=== PATIENT | male | born 2000 | race Caucasian/White ===

== ENCOUNTER 2022-02-17 06:00 | Emergency (ER) | payer OTHER, SELFPAY ==
[2022-02-17 05:50] VITALS: BP 117/70; PULSE 101; RESP 18; TEMP 36.9; O2SAT 97
[2022-02-17] MEDS: HALOPERIDOL 5 MG/ML VIAL 10 MG (06:06)
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
--- NOTE | 2022-02-17 06:19 | PC.NURSE ---
Pt consented and tolerated straight cath with no complications
[2022-02-17 06:43] LABS: Add Manual Diff / Slide Review NO; Basophils Absolute Auto 100 /uL (0-100); Basophils Percent Auto 0.8 % (0-2); Eosinophils Absolute Auto 200 /uL (0-450); Eosinophils Percent Auto 1.9 % (2-4); Hematocrit 44.3 % (41-53); Hemoglobin 14.9 g/dL (13.5-17.5); Lymphocytes Absolute Auto 4300 /uL (1100-4500); Lymphocytes Percent Auto 47.1 % (25-40); Mean Corpuscular HGB Conc 33.6 % (30-36); Mean Corpuscular Hemoglobin 30.6 PG (26-34); Mean Corpuscular Volume 91.1 fL (80-100); Monocytes Absolute Auto 700 /uL (0-900); Monocytes Percent Auto 7.7 % (3-14); Neutrophils Absolute Auto 3900 /uL (1500-7000); Neutrophils Percent Auto 42.5 % (50-75); Platelet Count 293 X10^3/uL (150-400); Red Blood Cell Count 4.86 X10^6/uL (4.5-5.9); Red Cell Distribution Width 11.9 % (11.6-14.8); White Blood Cell Count 9.2 X10^3/uL (4.5-11.0)
[2022-02-17 06:45] LABS: Ethanol (ETOH) 242 mg/dL
[2022-02-17 06:46] LABS: Albumin 5.3 g/dL (3.5-5.0); Alkaline Phosphatase 66 U/L (38-126); Aspartate Aminotransferase 60 IU/L (17-59); BUN Creatinine Ratio 8.2 (6-22); Bilirubin Total 1.7 mg/dL (0.2-1.3); Blood Urea Nitrogen 6 mg/dL (9-20); Calcium 9.2 mg/dL (8.4-10.2); Carbon Dioxide 19 mmol/L (22-32); Chloride 99 mmol/L (98-107); Estimated Glomerular Filt Rate > 60 mL/min (>60); Globulin 2.6 g/dL (1.7-4.1); Glucose 109 mg/dL (70-100); HEMOLYSIS 15 (0-50); Potassium 3.3 mmol/L (3.4-5.1); Sodium 139 mmol/L (137-145); Total Protein 7.9 g/dL (6.3-8.2)
[2022-02-17 06:53] LABS: Alanine Aminotransferase 29 IU/L (<50)
[2022-02-17 07:01] LABS: Appearance Urine UA CLEAR; Bilirubin Urine UA NEGATIVE (NEGATIVE); Color Urine UA YELLOW; Glucose Urine UA NEGATIVE (Negative); Ketones Urine UA TRACE (NEGATIVE); Leukocyte Esterase Urine UA TRACE (NEGATIVE); Nitrite Urine UA NEGATIVE (Negative); Occult Blood Urine UA TRACE-LYSED (Negative); Protein Urine UA 1+ (Negative); Specific Gravity Urine UA <=1.005 (1.000-1.035); Urobilinogen Urine UA 0.2 E.U./dL (0.2); pH Urine UA 5.5 (4.5-8.0)
[2022-02-17 07:06] LABS: Ur Creatinine Normal (Normal); Ur Specific Gravity Normal (Normal); Urine pH Normal (Normal)
[2022-02-17 07:07] LABS: UR Morphine/Opiate cutoff 300 Negative (Negative); Urine Amphetamines Negative (Negative); Urine Barbiturates Negative (Negative); Urine Benzodiazepines Negative (Negative); Urine Cocaine Negative (Negative); Urine MDMA Negative (Negative); Urine Methadone Negative (Negative); Urine Methamphetamines Negative (Negative); Urine Oxycodone Negative (Negative); Urine Phencyclidine Negative (Negative); Urine Tetrahydrocannabinol Negative (Negative); Urine Tricyclic Antidepressant Negative (Negative)
[2022-02-17 07:08] LABS: COVID19 -Nasal RAPID Negative (Negative)
--- NOTE | 2022-02-17 07:22 | DI.CT.S_ITS ---
PROCEDURE: CT HEAD/BRAIN WO CON INDICATIONS: altered mental status TECHNIQUE: Noncontrast 4.5 mm thick angled axial sections acquired from the foramen magnum to the vertex, with coronal and sagittal reformats. For radiation dose reduction, the following was used: automated exposure control, adjustment of mA and/or kV according to patient size. COMPARISON: [facility], MR, BRAIN WITHOUT CONTRAST, 09/05/2014, 12:01. FINDINGS: Image quality: Excellent. CSF spaces: Basal cisterns are patent. No extra-axial fluid collections. Ventricles are normal in size and shape. Brain: No midline shift. No intracranial masses or hemorrhage. Givens-white matter interface is normal. Skull and face: Calvarium and visualized facial bones are intact, without suspicious lesions. Sinuses: Visualized sinuses and mastoids are clear. IMPRESSION: CT head without acute intracranial abnormalities. No acute calvarial fractures. No mass or mass effect identified. Dictated by: Gerber Abbott M.D. on 02/17/2022 at 7:33 Approved by: Gerber Abbott M.D. on 02/17/2022 at 7:35
[2022-02-17 07:23] VITALS: PULSE 79; O2SAT 98
[2022-02-17 07:42] VITALS: PULSE 80; RESP 22; O2SAT 97
--- NOTE | 2022-02-17 07:50 | PC.NURSE ---
Pt calm in the bed. Will discuss with Dr. Ann about restraint removal
[2022-02-17 07:55] LABS: Bacteria Urine None Seen; Culture Indicated Urine Specimen Cultured; RBC Urine None Seen (0-5/HPF); Squamous Epithelial Cell Urine None Seen (0-5/HPF); WBC Urine 0-1/HPF (0-5/HPF)
--- NOTE | 2022-02-17 08:05 | PC.NURSE ---
Pt calm and cooperative. Parents at bedside. Restraints removed.
--- NOTE | 2022-02-17 08:07 | PC.NURSE ---
Pt is sleeping at this time. Parents at bedside. Resp even and unlabored. Satting 97% on RA
[2022-02-17 10:01] VITALS: PULSE 93; RESP 16; O2SAT 98
--- NOTE | 2022-02-17 10:02 | PC.NURSE ---
Partents at bedside. They have been given an update by Dr. Ann
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
--- NOTE | 2022-02-17 13:10 | PC.NURSE ---
Called dietary regarding meal tray for patient, patient reports he is a picky eater. Voice message left for dietary regarding safety tray and pt preferences.
--- NOTE | 2022-02-17 13:14 | PC.NURSE ---
Patients parents are present and supportive. Introduced self to patient. Patient stated he was feeling okay and understood why he was here. Patient is respectful, calm and cooperative with care.
[2022-02-17 14:35] VITALS: BP 140/83; PULSE 123; RESP 18; O2SAT 99
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
== END 2022-02-17 14:37 | disposition home or self-care (01) ==
PROVIDERS: Emergency Medicine; Emergency Provider Emergency Medicine
DX: F10.129 Alcohol abuse with intoxication, unspecified (principal); Y90.8 Blood alcohol level of 240 mg/100 ml or more; Z20.822 Contact with and (suspected) exposure to COVID-19; R45.1 Restlessness and agitation
CPT/HCPCS: 36415; 51701; 70450; 80053; 80305; 80320; 81001; 85025; 87086; 87635; 93005; 93010; 99285; C9803; J1630